=== PATIENT | male | born 1940 | race Caucasian/White ===

== ENCOUNTER → 2017-03-17 | Outpatient (CLI) | payer MEDICARE, BC ==
--- NOTE | 2017-03-17 12:23 | PCVCIMAG ---
APPROVED REPORT Study performed: 03/17/2017 10:39:43 EXAM: Comprehensive 2D, Doppler, and color-flow Echocardiogram Patient Location: Echo lab Status: routine BSA: 2.33 HR: 74 bpmBP: 132/64 mmHg Rhythm: NSR Other Information Study Quality: Adequate Risk Factors: Cardiac Risk Factors: HTN, Hyperlipidemia Indications Syncope 2D Dimensions LVEF(%): 65.03 (>50%) IVSd: 13.11 (7-11mm)LVOT Diam: 19.60 (18-24mm) LVDd: 48.09 mm PWd: 13.10 (7-11mm)Ascending Ao: 30.46 (22-36mm) LVDs: 30.95 (25-40mm) Left Atrium: 37.27 (27-40mm) Aortic Root: 31.23 mm LV Single Plane 4CH: 63.06 % LV Single Plane 2CH: 57.07 %Argueta's LVEF: 60.06 % Biplane EF: 61.2 % Volumes Left Atrial Volume (Systole) Single Plane 4CH: 50.82 mLSingle Plane 2CH: 82.51 mL LA ESV Index: 32.00 mL/m2 Aortic Valve AoV Peak Yovanny.: 1.25 m/s AO Peak Gr.: 6.20 mmHgLVOT Max P.33 mmHg LVOT Max V: 0.91 m/s SABRINA Vmax: 2.21 cm2 Mitral Valve E/A Ratio: 1.2 MV Decel. Time: 252.79 ms MV E Max Yovanny.: 1.01 m/s MV A Yovanny.: 0.87 m/s MV PHT: 73.31 ms IVRT: 62.28 ms TDI E/Lateral E': 20.20E/Medial E': 12.63 Medial E' Yovanny.: 0.08 m/s Lateral E' Yovanny.: 0.05 m/s Pulmonary Valve PV Peak Yovanny.: 1.03 m/sPV Peak Gr.: 4.23 mmHg Pulmonary Vein P Vein S: 0.55 m/sP Vein A: 0.37 m/s P Vein D: 0.47 m/sP Vein A Dur.: 107.3 msec P Vein S/D Ratio: 1.17 Tricuspid Valve TR Peak Yovanny.: 2.55 m/sRAP Estimate: 7.00 mmHg TR Peak Gr.: 25.98 mmHg PA Pressure: 33.00 mmHg Left Ventricle The left ventricle is normal size. There is normal LV segmental wall motion. Mild concentric left ventricular hypertrophy. Left ventricular systolic function is normal. The left ventricular ejection fraction is within the normal range. LVEF is 65%. Grade II - pseudonormal filling dynamics. Right Ventricle The right ventricle is normal size. The right ventricular systolic function is normal. Atria The left atrium size is normal. The right atrium size is normal. Aortic Valve The aortic valve is normal in structure. No aortic regurgitation is present. There is no aortic valvular stenosis. Mitral Valve The mitral valve is normal in structure. There is no mitral valve regurgitation noted. No evidence of mitral valve stenosis. Tricuspid Valve The tricuspid valve is normal in structure. Mild to moderate tricuspid regurgitation. Pulomonary artery pressure is 33 mmHg. Pulmonic Valve The pulmonary valve is normal in structure. There is no pulmonic valvular regurgitation. Great Vessels The aortic root is normal in size. IVC is normal in size and collapses with >50% inspiration Pericardium There is no pericardial effusion. <Conclusion> Left ventricular systolic function is normal. There is normal LV segmental wall motion. Mild LVH LVEF is 65%. Grade II diastolic dysfunction The aortic valve is normal in structure. No aortic regurgitation or stenosis The mitral valve is normal in structure. No mitral valve regurgitation noted. Pulmonary pressure could not be reliably ascertained There is no pericardial effusion.
--- NOTE | 2017-03-17 12:26 | PCVCIMAG ---
APPROVED REPORT Laterality: Bilateral Indications Syncope Risk Factors Hypertension: Hyperlipidemia Doppler Spectral Velocity Analysis PSV / EDVPSV / EDV ECA (R) 493 / 95 cm/sECA (L) 81 / 6 cm/s dICA (R) 81 / 25 cm/sdICA (L) 72 / 21 cm/s Che (R) 111 / 32 cm/smICA (L) 57 / 17 cm/s pICA (R) 104 / 30 cm/spICA (L) 59 / 13 cm/s Bulb (R) 76 / 26 cm/sBulb (L) 59 / 14 cm/s dCCA (R) 47 / 13 cm/sdCCA (L) 79 / 16 cm/s mCCA (R) 59 / 14 cm/smCCA (L) 88 / 20 cm/s Vert (R) 51 / 16 cm/sVert (L) 50 / 13 cm/s ICA/CCA 1.90ICA/CCA 0.82 Basic Measurements Blood Pressure: Pulses: Right Left RightLeft Brachial(Sitting) 120/15maIz074/68mmHgTemporal Real Time B-Mode Imaging Vert. (R)AntegradeVert. (L)Antegrade Findings The right carotid bulb has mild calcified plaque. The right proximal internal carotid artery shows <40% stenosis. The right common carotid artery shows no significant stenosis. The right external carotid artery shows >90% stenosis. The left carotid bulb has moderate calcified plaque. The left proximal internal carotid artery shows no significant stenosis. The left common carotid artery shows no significant stenosis. The left external carotid artery shows no significant stenosis. Conclusion 1. Right internal carotid artery stenosis (<40%) 2. Left internal carotid artery stenosis (<40%) 3. Antegrade vertebral flow
== END | disposition home or self-care (01) ==
LOC: PCVCIMAG 09:59
PROVIDERS: ATTEND Internal Medicine
DX: I65.23 Occlusion and stenosis of bilateral carotid arteries (principal); R55 Syncope and collapse; I45.10 Unspecified right bundle-branch block; I10 Essential (primary) hypertension; I07.1 Rheumatic tricuspid insufficiency; Z87.891 Personal history of nicotine dependence; Z79.899 Other long term (current) drug therapy
CPT/HCPCS: 93306; 93880; G0463

== ENCOUNTER → 2017-09-16 | Outpatient (CLI) | payer MEDICARE, BC | END | disposition home or self-care (01) | LOC: PCVCCLINIC 13:15 | DX: I95.1 Orthostatic hypotension (principal); I10 Essential (primary) hypertension; I65.23 Occlusion and stenosis of bilateral carotid arteries; E78.5 Hyperlipidemia, unspecified; Z87.891 Personal history of nicotine dependence | CPT/HCPCS: 80061; 93005; G0463 ==

== ENCOUNTER → 2018-03-16 | Outpatient (CLI) | payer MEDICARE, BC | END | disposition home or self-care (01) | LOC: PCVCCLINIC 11:07 | PROVIDERS: ATTEND Internal Medicine | DX: R94.31 Abnormal electrocardiogram [ECG] [EKG] (principal); I95.1 Orthostatic hypotension; I10 Essential (primary) hypertension; I65.23 Occlusion and stenosis of bilateral carotid arteries; E78.5 Hyperlipidemia, unspecified; M10.9 Gout, unspecified; Z85.46 Personal history of malignant neoplasm of prostate; Z87.891 Personal history of nicotine dependence; Z72.89 Other problems related to lifestyle | CPT/HCPCS: 36415; 80061; 93005; G0463 ==

== ENCOUNTER → 2018-10-03 | Outpatient (CLI) | payer MEDICARE, BC | END | disposition home or self-care (01) | LOC: PCVCCLINIC 13:00 | PROVIDERS: ATTEND Internal Medicine | DX: I95.1 Orthostatic hypotension (principal); I10 Essential (primary) hypertension; E78.5 Hyperlipidemia, unspecified; I65.23 Occlusion and stenosis of bilateral carotid arteries; Z87.891 Personal history of nicotine dependence | CPT/HCPCS: 36415; 80061; 93005; G0463 ==